=== PATIENT | female | born 1955 | race African-American/Black ===

== ENCOUNTER 2017-01-28 23:41 | Inpatient (IN) | payer MEDICAID ==
[~2017-01-28] VITALS: Ht 165.1 cm; Wt 86.2 kg
[~2017-01-28 23:41] MED LIST: ALL100T PO; ANAS1TAB PO; ARIP1TAB7 PO; ATO40T PO; BUPR200T8 PO; CALC-450 PO; ESOM40CA39 PO; GABA-339 PO; GABA250S2 PO; HYDR50TA15 PO; HYDRX10T PO; LOSA100T22 PO; MAGN400T23 PO; METO-158 PO; MIRT45TA PO; MORP30TA PO; OMEPRAZOLE DR 20 MG CAPSULE; PANT40TA2 PO; POTA10TA51 PO; SUCR1TAB PO; TAMO20TA5 PO; TIZA4TAB9 PO; ZOLP5TAB5 PO
[2017-01-29 00:32] LABS: Basophils # (auto) 0 uL; Basophils % (auto) 0.5 % (0.0-2.0); Eosinophils # (auto) 0 uL; Eosinophils % (auto) 0.4 % (0.0-7.0); Hematocrit 33.6 % (36.0-46.0); Lymphocytes # (auto) 0.7 uL; Lymphocytes % (auto) 19.6 % (10.0-50.0); Mean Corpuscular Hemoglobin 28.6 pg (28.0-32.0); Mean Corpuscular Hgb Conc. 32.7 g/dL (32.0-36.0); Mean Corpuscular Volume 87.5 fL (80.0-100.0); Mean Platelet Volume 6.5 fL (6.9-10.8); Monocytes # (auto) 0.2 uL; Monocytes % (auto) 6.4 % (0.0-12.0); Neutrophils # (auto) 2.7 uL; Neutrophils % (auto) 73.1 % (37.0-80.0); Platelet Count (auto) 377 10^3/uL (140-450); White Blood Cell 3.7 10^3/uL (4.4-10.8)
[2017-01-29 00:46] LABS: INR 1.07 (0.9-1.15); Partial Thromboplastin Time 26.6 sec (22.64-33.71); Prothrombin Time 11.7 sec (9.37-12.3)
[2017-01-29 00:49] LABS: Red Cell Distribution Width 22.2 % (11.8-14.3)
[2017-01-29 00:50] LABS: Albumin 3.2 g/dL (3.4-5.0); Amylase 106 U/L (25-115); Anion Gap 9 (5-15); Aspartate Aminotransferase 27 U/L (15-37); BUN/Creatinine Ratio 9.2; Blood Urea Nitrogen 8 mg/dL (7-18); Calcium 9.1 mg/dL (8.5-10.1); Carbon Dioxide 23 mmol/L (21-32); Chloride 106 mmol/L (98-107); GFR African American 85 mL/min; GFR Non-African American 70 mL/min; Glucose 127 mg/dL (74-106); Magnesium 1.7 mg/dL (1.6-2.6); Potassium 3.1 mmol/L (3.5-5.1); Sodium 138 mmol/L (136-145)
[2017-01-29 00:55] LABS: Alkaline Phosphatase 40 U/L (45-117); Bilirubin, Total 0.5 mg/dL (0.2-1.0); Total Protein 7.5 g/dL (6.4-8.2)
[2017-01-29 01:27] LABS: Anisocytosis Slight; Platelet Estimate Adequate
[2017-01-29] MEDS ORDERED: POTASSIUM CHL 10% (20 MEQ/15ML) 15ml ORAL SOLN PO ONE (01:30)
[2017-01-29] MEDS ORDERED: LIDOCAINE VISCOUS 2% 15ML UD PO ONE (01:30)
[2017-01-29] MEDS ORDERED: ALUM & MAG HYDROX-SIMETH LIQ(MAALOX) 30 ML PO ONE (01:30)
[2017-01-29] MEDS ORDERED: DONNATAL 5ml ORAL Elix (BELLADONNA ALK-PHENOBARB) PO ONE (01:30)
[2017-01-29] MEDS ORDERED: SODIUM CHLORIDE 0.9% 1,000 ML IV ONE ×2 (01:38)
[2017-01-29] MEDS ORDERED: PROMETHAZINE HCL 25 MG/ML 1ML IV ONE (01:45)
[2017-01-29 02:17] LABS: Urine Bilirubin Negative (Negative); Urine Blood Negative /uL (Negative); Urine Color Yellow (Yellow); Urine Glucose Normal (Normal); Urine Ketone 1+ (Negative); Urine Mucus FEW (None Seen); Urine Nitrite Negative (Negative); Urine RBC 8 /hpf (0 - 4); Urine Squamous Epithelial Cell FEW /hpf (<5)
[2017-01-29] MEDS ORDERED: PANTOPRAZOLE 40 MG/10 ML VIAL IV ONE (02:30)
[2017-01-29] MEDS ORDERED: hydrALAZINE HCL 25 MG TAB PO ONE (02:30)
[2017-01-29] MEDS ORDERED: HYDROcodone-ACET 5/325MG TAB PO PRN (02:30)
[2017-01-29] MEDS ORDERED: TEMAZEPAM 15 MG CAP PO PRN (02:30)
[2017-01-29] MEDS ORDERED: cefTRIAXone 1GM/50ML D5W 50 ML IV ONE (02:30)
[2017-01-29] MEDS ORDERED: ACETAMINOPHEN 325 MG TAB PO PRN (02:30)
[2017-01-29] MEDS ORDERED: NALBUPHINE HCL 10 MG/1ml INJECTION IV ONE (03:15)
[2017-01-29] MEDS: SODIUM CHLORIDE 0.9% 1,000 ML IV SCH ×2 (03:24→16:43)
[2017-01-29] MEDS ORDERED: POTASSIUM CHL 20 Meq TABLET PO ONE (04:30)
[2017-01-29] MEDS: hydrALAZINE HCL 25 MG TAB PO SCH ×3 (06:00→23:01)
[2017-01-29] MEDS: GABAPENTIN 400 MG CAP PO SCH ×3 (06:05→23:01)
[2017-01-29] MEDS: buPROPion HCL 75 MG TAB PO SCH ×2 (06:43→18:47)
[2017-01-29] MEDS: SUCRALFATE 1 GM TAB PO SCH ×4 (06:43→23:01)
[2017-01-29] MEDS: KETOROLAC TROMETH 30 MG/ML 1ML VIAL IV PRN ×2 (06:51→19:00)
[2017-01-29] MEDS: metroNIDAZOLE 500MG/100ML 100 ML IV SCH ×3 (07:59→23:00)
[2017-01-29] MEDS ORDERED: PANTOPRAZOLE 40 MG/10 ML VIAL IV SCH (10:00)
[2017-01-29] MEDS: MAGNESIUM OXIDE 400 MG TAB PO SCH (10:39)
[2017-01-29] MEDS: METOPROLOL SUCCINATE XL 50 MG TAB PO SCH (10:39)
[2017-01-29] MEDS: LOSARTAN POTASSIUM 50 MG TAB PO SCH (10:39)
[2017-01-29] MEDS: ENOXAPARIN SOD 40 MG/0.4 ML SYRINGE SC SCH (10:40)
[2017-01-29] MEDS: ALLOPURINOL 100 MG TAB PO SCH (10:40)
[2017-01-29] MEDS ORDERED: POTASSIUM CHLORIDE 40 MEQ, LIDOCAINE 1% (LOCAL ANESTH.) 4 ML in SODIUM CHL 0.9% 250 ML IV ONE (12:15)
[2017-01-29] MEDS: HYDROmorphone HCL 2 MG/ML VL IV PRN ×2 (12:54→20:56)
[2017-01-29 21:44] VITALS: BP 131/83
[2017-01-29] MEDS: PANTOPRAZOLE 40 MG/10 ML VIAL IV SCH (23:00)
[2017-01-29] MEDS: ATORVASTATIN 20 MG TAB PO SCH (23:01)
[2017-01-29] MEDS: MIRTAZAPINE 30 MG TAB PO SCH (23:02)
[2017-01-30] MEDS: HYDROmorphone HCL 2 MG/ML VL IV PRN ×3 (04:42→21:28)
[2017-01-30 05:10] VITALS: BP 144/90
[2017-01-30 05:51] LABS: Basophils # (auto) 0 uL; Basophils % (auto) 0.6 % (0.0-2.0); Eosinophils # (auto) 0.1 uL; Eosinophils % (auto) 2.2 % (0.0-7.0); Hematocrit 34.4 % (36.0-46.0); Hemoglobin 11.1 g/dL (12.2-16.2); Lymphocytes # (auto) 1.6 uL; Lymphocytes % (auto) 53.2 % (10.0-50.0); Mean Corpuscular Hemoglobin 28.9 pg (28.0-32.0); Mean Corpuscular Hgb Conc. 32.3 g/dL (32.0-36.0); Mean Corpuscular Volume 89.6 fL (80.0-100.0); Mean Platelet Volume 6.5 fL (6.9-10.8); Monocytes # (auto) 0.4 uL; Monocytes % (auto) 13.3 % (0.0-12.0); Neutrophils # (auto) 0.9 uL; Neutrophils % (auto) 30.7 % (37.0-80.0); Nucleated Red Blood Cells % 0.3 %; Platelet Count (auto) 289 10^3/uL (140-450); White Blood Cell 3.1 10^3/uL (4.4-10.8)
[2017-01-30] MEDS: metroNIDAZOLE 500MG/100ML 100 ML IV SCH ×3 (06:00→21:15)
[2017-01-30] MEDS: GABAPENTIN 400 MG CAP PO SCH ×3 (06:01→21:17)
[2017-01-30] MEDS: SUCRALFATE 1 GM TAB PO SCH ×4 (06:01→21:27)
[2017-01-30] MEDS: hydrALAZINE HCL 25 MG TAB PO SCH ×3 (06:01→21:16)
[2017-01-30] MEDS: SODIUM CHLORIDE 0.9% 1,000 ML IV SCH ×2 (06:01→21:27)
[2017-01-30] MEDS: buPROPion HCL 75 MG TAB PO SCH ×2 (06:01→18:27)
[2017-01-30 06:07] LABS: Albumin 2.8 g/dL (3.4-5.0); BUN/Creatinine Ratio 3.8
[2017-01-30 06:19] LABS: Platelet Estimate Adequate
[2017-01-30 06:20] LABS: Anisocytosis Slight; Bilirubin, Total 0.4 mg/dL (0.2-1.0); Burr Cells FEW; Total Protein 6.6 g/dL (6.4-8.2)
[2017-01-30 09:00] VITALS: BP 132/80
[2017-01-30] MEDS: KETOROLAC TROMETH 30 MG/ML 1ML VIAL IV PRN ×2 (09:32→17:42)
[2017-01-30] MEDS: PANTOPRAZOLE 40 MG/10 ML VIAL IV SCH ×2 (09:32→21:27)
[2017-01-30] MEDS: cefTRIAXone 1GM/50ML D5W 50 ML IV SCH (09:32)
[2017-01-30] MEDS: MAGNESIUM OXIDE 400 MG TAB PO SCH (09:33)
[2017-01-30] MEDS: ALLOPURINOL 100 MG TAB PO SCH (09:33)
[2017-01-30] MEDS: ENOXAPARIN SOD 40 MG/0.4 ML SYRINGE SC SCH (09:37)
[2017-01-30] MEDS: METOPROLOL SUCCINATE XL 50 MG TAB PO SCH (09:47)
[2017-01-30] MEDS: LOSARTAN POTASSIUM 50 MG TAB PO SCH (09:47)
[2017-01-30 13:00] VITALS: BP 159/101
[2017-01-30] MEDS: ONDANSETRON HCL 4 MG/2 ML VIAL IV PRN ×2 (14:14→21:27)
[2017-01-30 14:43] LABS: Basophils # (auto) 0 uL; Basophils % (auto) 0.7 % (0.0-2.0); Eosinophils # (auto) 0.1 uL; Eosinophils % (auto) 1.8 % (0.0-7.0); Hematocrit 33.6 % (36.0-46.0); Hemoglobin 10.9 g/dL (12.2-16.2); Lymphocytes % (auto) 33.6 % (10.0-50.0); Mean Corpuscular Hemoglobin 28.7 pg (28.0-32.0); Mean Corpuscular Hgb Conc. 32.4 g/dL (32.0-36.0); Mean Corpuscular Volume 88.4 fL (80.0-100.0); Mean Platelet Volume 6.4 fL (6.9-10.8); Monocytes # (auto) 0.3 uL; Monocytes % (auto) 8.8 % (0.0-12.0); Neutrophils # (auto) 1.7 uL; Neutrophils % (auto) 55.1 % (37.0-80.0); Nucleated Red Blood Cells % 0.2 %; Platelet Count (auto) 325 10^3/uL (140-450); White Blood Cell 3.1 10^3/uL (4.4-10.8)
[2017-01-30 15:04] LABS: Red Cell Distribution Width 21.8 % (11.8-14.3)
[2017-01-30 15:05] LABS: BUN/Creatinine Ratio 3.3; Bilirubin, Total 0.4 mg/dL (0.2-1.0); Calcium 8.2 mg/dL (8.5-10.1); Potassium 3.8 mmol/L (3.5-5.1); Total Protein 7.1 g/dL (6.4-8.2)
[2017-01-30 16:04] LABS: Anisocytosis Slight; Burr Cells FEW; Ovalocytes FEW; Platelet Estimate Adequate
[2017-01-30 17:44] VITALS: BP 147/80
[2017-01-30] MEDS: ATORVASTATIN 20 MG TAB PO SCH (21:15)
[2017-01-30] MEDS: MIRTAZAPINE 30 MG TAB PO SCH (21:17)
[2017-01-30 22:00] VITALS: BP 137/80
[2017-01-31] MEDS: KETOROLAC TROMETH 30 MG/ML 1ML VIAL IV PRN (04:55)
[2017-01-31 05:02] VITALS: BP 93/58
[2017-01-31] MEDS: metroNIDAZOLE 500MG/100ML 100 ML IV SCH ×3 (05:18→22:14)
[2017-01-31] MEDS: GABAPENTIN 400 MG CAP PO SCH ×3 (05:24→22:11)
[2017-01-31] MEDS: buPROPion HCL 75 MG TAB PO SCH ×2 (05:24→17:25)
[2017-01-31] MEDS: SUCRALFATE 1 GM TAB PO SCH ×4 (05:24→22:12)
[2017-01-31] MEDS: hydrALAZINE HCL 25 MG TAB PO SCH ×3 (06:00→22:14)
[2017-01-31 09:00] VITALS: BP 108/67
[2017-01-31] MEDS: PANTOPRAZOLE 40 MG/10 ML VIAL IV SCH ×2 (09:25→22:11)
[2017-01-31] MEDS: HYDROmorphone HCL 2 MG/ML VL IV PRN ×2 (09:25→17:00)
[2017-01-31] MEDS: ONDANSETRON HCL 4 MG/2 ML VIAL IV PRN (09:25)
[2017-01-31] MEDS: cefTRIAXone 1GM/50ML D5W 50 ML IV SCH (09:25)
[2017-01-31] MEDS: ENOXAPARIN SOD 40 MG/0.4 ML SYRINGE SC SCH (09:25)
[2017-01-31] MEDS: MAGNESIUM OXIDE 400 MG TAB PO SCH (09:26)
[2017-01-31] MEDS: ALLOPURINOL 100 MG TAB PO SCH (09:26)
[2017-01-31] MEDS: LOSARTAN POTASSIUM 50 MG TAB PO SCH ×2 (09:44→10:00)
[2017-01-31] MEDS: METOPROLOL SUCCINATE XL 50 MG TAB PO SCH ×2 (09:45→10:00)
[2017-01-31] MEDS: SODIUM CHLORIDE 0.9% 1,000 ML IV SCH (11:25)
[2017-01-31] MEDS: MUPIROCIN 2% OINT 22GM TOP SCH ×2 (11:32→22:11)
[2017-01-31 13:00] VITALS: BP 106/88
[2017-01-31 17:00] VITALS: BP 147/92
[2017-01-31 22:00] VITALS: BP 135/80
[2017-01-31] MEDS: ATORVASTATIN 20 MG TAB PO SCH (22:11)
[2017-01-31] MEDS: MIRTAZAPINE 30 MG TAB PO SCH (22:13)
[2017-02-01] MEDS: HYDROmorphone HCL 2 MG/ML VL IV PRN ×4 (03:16→23:28)
[2017-02-01] MEDS: ONDANSETRON HCL 4 MG/2 ML VIAL IV PRN ×3 (03:16→16:14)
[2017-02-01 05:00] VITALS: BP 123/71
[2017-02-01] MEDS: buPROPion HCL 75 MG TAB PO SCH ×2 (06:22→17:03)
[2017-02-01] MEDS: SUCRALFATE 1 GM TAB PO SCH ×4 (06:22→23:24)
[2017-02-01] MEDS: GABAPENTIN 400 MG CAP PO SCH ×3 (06:22→23:24)
[2017-02-01] MEDS: metroNIDAZOLE 500MG/100ML 100 ML IV SCH ×3 (06:22→23:26)
[2017-02-01] MEDS: hydrALAZINE HCL 25 MG TAB PO SCH ×3 (06:22→23:27)
[2017-02-01] MEDS: SODIUM CHLORIDE 0.9% 1,000 ML IV SCH ×3 (06:36→16:13)
[2017-02-01 07:00] LABS: Basophils # (auto) 0 uL; Basophils % (auto) 0.4 % (0.0-2.0); Eosinophils # (auto) 0.1 uL; Hematocrit 28.8 % (36.0-46.0); Hemoglobin 9.6 g/dL (12.2-16.2); Lymphocytes # (auto) 1.2 uL; Lymphocytes % (auto) 44.3 % (10.0-50.0); Mean Corpuscular Hemoglobin 29.4 pg (28.0-32.0); Mean Corpuscular Hgb Conc. 33.4 g/dL (32.0-36.0); Mean Corpuscular Volume 88.1 fL (80.0-100.0); Mean Platelet Volume 6.6 fL (6.9-10.8); Monocytes # (auto) 0.4 uL; Monocytes % (auto) 15.7 % (0.0-12.0); Neutrophils % (auto) 37.6 % (37.0-80.0); Nucleated Red Blood Cells % 0.1 %; Platelet Count (auto) 264 10^3/uL (140-450); White Blood Cell 2.7 10^3/uL (4.4-10.8)
[2017-02-01 07:06] LABS: BUN/Creatinine Ratio 11.2; Calcium 8.4 mg/dL (8.5-10.1); Potassium 4.3 mmol/L (3.5-5.1)
[2017-02-01 07:15] LABS: Red Cell Distribution Width 21.4 % (11.8-14.3)
[2017-02-01 08:41] LABS: Anisocytosis Slight; Platelet Estimate Adequate
[2017-02-01 08:42] LABS: Burr Cells FEW; Ovalocytes FEW
[2017-02-01] MEDS ORDERED: TAMO10TA PO (08:56)
[2017-02-01] MEDS ORDERED: LOSA25TA8 PO (08:56)
[2017-02-01] MEDS ORDERED: GABA-497 PO (08:56)
[2017-02-01 09:00] VITALS: BP 116/72
[2017-02-01] MEDS: PANTOPRAZOLE 40 MG/10 ML VIAL IV SCH (09:12)
[2017-02-01] MEDS: cefTRIAXone 1GM/50ML D5W 50 ML IV SCH (09:12)
[2017-02-01] MEDS: MAGNESIUM OXIDE 400 MG TAB PO SCH (09:13)
[2017-02-01] MEDS: LOSARTAN POTASSIUM 50 MG TAB PO SCH (09:13)
[2017-02-01] MEDS: METOPROLOL SUCCINATE XL 50 MG TAB PO SCH (09:13)
[2017-02-01] MEDS: ALLOPURINOL 100 MG TAB PO SCH (09:14)
[2017-02-01] MEDS: ENOXAPARIN SOD 40 MG/0.4 ML SYRINGE SC SCH (09:14)
[2017-02-01] MEDS: MUPIROCIN 2% OINT 22GM TOP SCH ×2 (09:14→23:26)
[2017-02-01] MEDS ORDERED: HYOSCYAMINE SULF 0.125 MG TAB PO PRN (11:00)
[2017-02-01 13:00] VITALS: BP 127/71
[2017-02-01 17:00] VITALS: BP 150/82
[2017-02-01 22:25] VITALS: BP 150/83
[2017-02-01] MEDS: MIRTAZAPINE 30 MG TAB PO SCH (23:24)
[2017-02-01] MEDS: ATORVASTATIN 20 MG TAB PO SCH (23:24)
[2017-02-01] MEDS: PANTOPRAZOLE 40 MG TAB PO SCH (23:25)
[2017-02-02] MEDS: SODIUM CHLORIDE 0.9% 1,000 ML IV SCH ×2 (04:41→06:31)
[2017-02-02 06:00] VITALS: BP 122/78
[2017-02-02] MEDS: metroNIDAZOLE 500MG/100ML 100 ML IV SCH (06:34)
[2017-02-02] MEDS: buPROPion HCL 75 MG TAB PO SCH (06:34)
[2017-02-02] MEDS: GABAPENTIN 400 MG CAP PO SCH (06:34)
[2017-02-02] MEDS: SUCRALFATE 1 GM TAB PO SCH ×2 (06:34→11:30)
[2017-02-02] MEDS: hydrALAZINE HCL 25 MG TAB PO SCH (06:35)
[2017-02-02 07:48] LABS: Basophils # (auto) 0 uL; Basophils % (auto) 0.9 % (0.0-2.0); Eosinophils # (auto) 0.1 uL; Eosinophils % (auto) 2.7 % (0.0-7.0); Hematocrit 29.1 % (36.0-46.0); Hemoglobin 9.6 g/dL (12.2-16.2); Lymphocytes # (auto) 1.1 uL; Mean Corpuscular Hemoglobin 29.4 pg (28.0-32.0); Mean Corpuscular Volume 89.1 fL (80.0-100.0); Mean Platelet Volume 6.5 fL (6.9-10.8); Monocytes # (auto) 0.4 uL; Monocytes % (auto) 14.5 % (0.0-12.0); Neutrophils # (auto) 1.3 uL; Neutrophils % (auto) 44.9 % (37.0-80.0); Nucleated Red Blood Cells % 0.1 %; Platelet Count (auto) 247 10^3/uL (140-450)
[2017-02-02 08:09] LABS: Red Cell Distribution Width 21.7 % (11.8-14.3)
[2017-02-02 08:47] LABS: BUN/Creatinine Ratio 16.7; Potassium 4.1 mmol/L (3.5-5.1)
[2017-02-02 08:48] LABS: Albumin 2.5 g/dL (3.4-5.0); Bilirubin, Total 0.2 mg/dL (0.2-1.0); Calcium 8.3 mg/dL (8.5-10.1); Total Protein 6.3 g/dL (6.4-8.2)
[2017-02-02 09:00] VITALS: BP 140/91
[2017-02-02 09:22] LABS: Anisocytosis Slight; Hypochromia Slight; Ovalocytes FEW; Platelet Clumps FEW; Platelet Estimate Adequate; Schistocytes FEW
[2017-02-02] MEDS: MUPIROCIN 2% OINT 22GM TOP SCH (09:37)
[2017-02-02] MEDS: cefTRIAXone 1GM/50ML D5W 50 ML IV SCH (09:37)
[2017-02-02] MEDS: METOPROLOL SUCCINATE XL 50 MG TAB PO SCH (09:38)
[2017-02-02] MEDS: ALLOPURINOL 100 MG TAB PO SCH (09:39)
[2017-02-02] MEDS: MAGNESIUM OXIDE 400 MG TAB PO SCH (09:39)
[2017-02-02] MEDS: LOSARTAN POTASSIUM 50 MG TAB PO SCH (09:39)
[2017-02-02] MEDS: PANTOPRAZOLE 40 MG TAB PO SCH (09:39)
[2017-02-02] MEDS: ENOXAPARIN SOD 40 MG/0.4 ML SYRINGE SC SCH (09:40)
[2017-02-02] MEDS ORDERED: FLORASTOR (S. BOULARDII) 250 MG CAP PO SCH (10:00)
[2017-02-02] MEDS ORDERED: CIPROFLOXACIN HCL 500 MG TAB PO SCH (10:00)
[2017-02-02] MEDS: HYDROmorphone HCL 2 MG/ML VL IV PRN (10:02)
[2017-02-02 10:58] VITALS: BP 140/91
[2017-02-02 13:00] VITALS: BP 142/85
[2017-02-02] MEDS ORDERED: metroNIDAZOLE 500 MG TAB PO SCH (14:00)
== END 2017-02-02 13:30 | disposition home or self-care (01) | DRG 813 ==
LOC: EDBD 23:41 → ER 23:51 → OVERFLOW 23:52 → EAST 01-29 14:30 → OVERFLOW 01-29 14:34 → WEST WING 01-29 18:40
PROVIDERS: ADMIT Nurse Practitioner; ATTEND Internal Medicine
DX: N99.840 Postprocedural hematoma of a genitourinary system organ or structure following a genitourinary system procedure (principal); E44.0 Moderate protein-calorie malnutrition; D70.9 Neutropenia, unspecified; D64.9 Anemia, unspecified; E11.9 Type 2 diabetes mellitus without complications; I10 Essential (primary) hypertension; N39.0 Urinary tract infection, site not specified; K52.9 Noninfective gastroenteritis and colitis, unspecified; E78.5 Hyperlipidemia, unspecified; E87.6 Hypokalemia; F17.210 Nicotine dependence, cigarettes, uncomplicated; G89.18 Other acute postprocedural pain; K21.9 Gastro-esophageal reflux disease without esophagitis; K29.50 Unspecified chronic gastritis without bleeding; Y83.8 Other surgical procedures as the cause of abnormal reaction of the patient, or of later complication, without mention of misadventure at the time of the procedure; M10.9 Gout, unspecified; F32.9 Major depressive disorder, single episode, unspecified; F41.9 Anxiety disorder, unspecified; G89.29 Other chronic pain; M43.16 Spondylolisthesis, lumbar region; Z79.899 Other long term (current) drug therapy; Z80.3 Family history of malignant neoplasm of breast; Z80.6 Family history of leukemia; Z82.0 Family history of epilepsy and other diseases of the nervous system; Z82.49 Family history of ischemic heart disease and other diseases of the circulatory system; Z83.3 Family history of diabetes mellitus; Z85.3 Personal history of malignant neoplasm of breast; Z85.51 Personal history of malignant neoplasm of bladder; Z90.49 Acquired absence of other specified parts of digestive tract; Z90.5 Acquired absence of kidney; Z98.51 Tubal ligation status; Z68.31 Body mass index [BMI] 31.0-31.9, adult
CPT/HCPCS: 36415; 74176; 80048; 80053; 81001; 82150; 82962; 83690; 83735; 84484; 85025; 85610; 85730; 87040; 87045; 87081; 87086; 87493; 87899; 93005; 96361; 96374; 96375; C9113; J0696; J1885; J2001; J2405; J3490

== ENCOUNTER → 2023-02-02 | Outpatient (CLI) | payer MEDICARE, MEDICAID ==
[~2023-02-02] VITALS: Ht 165.1 cm; Wt 75.3 kg
[~2023-02-02] MED LIST changes: +ADENOSINE 63 MG in GIVE UN-DILUTED 0 ML IV ONE; -ALL100T PO; -ANAS1TAB PO; +ANAS1TAB52 PO; -ATO40T PO; +BUPR-239 PO; -BUPR200T8 PO; -CALC-450 PO; -ESOM40CA39 PO; +GABA-1250 PO; -GABA-339 PO; -GABA250S2 PO; +HYDR-4297 PO; -HYDR50TA15 PO; -LOSA100T22 PO; +LOSA25TA5 PO; -MAGN400T23 PO; -METO-158 PO; -OMEPRAZOLE DR 20 MG CAPSULE; -POTA10TA51 PO; +TAMO10TA PO; -TAMO20TA5 PO
== END | disposition home or self-care (01) ==
LOC: XYW 07:49
PROVIDERS: ATTEND Internal Medicine
DX: Z01.818 Encounter for other preprocedural examination (principal); Z01.810 Encounter for preprocedural cardiovascular examination; C64.9 Malignant neoplasm of unspecified kidney, except renal pelvis; I25.10 Atherosclerotic heart disease of native coronary artery without angina pectoris; I10 Essential (primary) hypertension; R09.89 Other specified symptoms and signs involving the circulatory and respiratory systems; E78.5 Hyperlipidemia, unspecified; Z68.26 Body mass index [BMI] 26.0-26.9, adult; Z90.13 Acquired absence of bilateral breasts and nipples; Z87.891 Personal history of nicotine dependence; Z86.74 Personal history of sudden cardiac arrest
CPT/HCPCS: 78452; 93017; A9500; J0153